=== PATIENT | female | born 1955 | race Caucasian/White ===

== ENCOUNTER 2016-07-16 06:47 | Day surgery (SDC) | payer BC ==
[2016-07-15 14:02] VITALS: BMI 18.6
[2016-07-16 07:29] VITALS: PULSE 77; RESP 16; TEMP 98.2
[2016-07-16] MEDS ORDERED: LIDOCAINE 2% INJ 20 MG/ML SQ ONE (08:18)
--- NOTE | 2016-07-16 08:48 | IR ---
PICC LINE PLACEMENT: HISTORY: Infection requiring long-term antibiotic therapy PROCEDURE: Ultrasound and fluoroscopic guidance of PICC line placement. COMPLICATIONS: None ANESTHESIA: 1. 1% Lidocaine locally. FINDINGS/TECHNIQUE: The procedure was explained to the patient. The risks, complications, benefits and alternatives were discussed and any questions were answered. Informed consent was obtained. The patient was placed supine on the fluoroscopic table and prepped and draped in the usual sterile fash ion. Utilizing a 21 gauge needle and sonographic and fluoroscopic guidance, access in the right bas ilic vein was achieved and there is placement of a 0.018 guidewire. The vein is patent. A 4-F sheat h was placed over the guidewire. The guidewire and dilator were removed and a 4-F. PICC line was astrid luz through the sheath with the tip at the level of the SVC. The sheath was removed, the catheter wa s flushed and sutured into position. The patient was stable throughout the procedure and remained st able upon discharge from the Department of Radiology. The vein puncture was patent under ultrasound. A yanez scale image was obtained to document patency of the vein punctured. All elements of the maximal barrier technique were utilized. FLUOROSCOPY TIME: 0.1 minute IMPRESSION: Successful PICC line placement under ultrasound and fluoroscopic guidance.
[2016-07-16 09:07] VITALS: BP 144/70
== END 2016-07-16 08:59 | disposition home or self-care (01) ==
LOC: CATHCVL 06:47
PROVIDERS: ATTEND Radiology Diagnostic Radiology
DX: G89.4 Chronic pain syndrome (principal); E88.40 Mitochondrial metabolism disorder, unspecified
CPT/HCPCS: 36569; 76937; 77001; C1751; C1769; J2001

== ENCOUNTER 2019-06-14 19:23 | Inpatient (IN) | payer BC ==
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
[2019-06-14 21:07] LABS: Basophils % (A) 0 %; Eosinophils # (A) 0.1 k/uL (0-0.7); Eosinophils % (A) 1 %; HCT 35.7 % (34.0-46.0); HGB 11.6 gm/dL (11.4-16.0); Lymphocytes # (A) 0.8 k/uL (1.0-4.8); Lymphocytes % (A) 6 %; MCH 31.4 pg (25.0-35.0); MCHC 32.4 g/dL (31.0-37.0); Monocytes # (A) 0.3 k/uL (0-1.0); Monocytes % (A) 2 %; Neutrophils # (A) 11.8 k/uL (1.3-7.7); Neutrophils % (A) 90 %; Platelet Count 257 k/uL (150-450); RBC 3.68 m/uL (3.80-5.40); RDW 14.1 % (11.5-15.5); WBC 13.2 k/uL (3.8-10.6)
[2019-06-14 21:09] LABS: African American GFR (CKD) >90 (>60 ml/min/1.73 sqM); Anion Gap 11 mmol/L; Blood Urea Nitrogen 10 mg/dL (7-17); Calcium 8.9 mg/dL (8.4-10.2); Carbon Dioxide 20 mmol/L (22-30); Chloride 107 mmol/L (98-107); Glucose 120 mg/dL (74-99); Non-African American GFR(CKD) >90 (>60 ml/min/1.73 sqM); Potassium 3.8 mmol/L (3.5-5.1); Sodium 138 mmol/L (137-145)
--- NOTE | 2019-06-14 21:50 | XR ---
EXAMINATION TYPE: XR chest 2V DATE OF EXAM: 06/14/2019 COMPARISON: NONE HISTORY: Cough TECHNIQUE: Frontal and lateral views of the chest are obtained. FINDINGS: Scattered senescent parenchymal changes noted. Hyperinflation compatible with COPD. Reticulonodular right perihilar and right lower lobe infiltrate as well as left lower lobe infiltrate noted. Correlate for COVID 19 pneumonia. Heart size is stable. Mediastinal structures are stable and grossly unremarkable. No evidence for hilar prominence. Degenerative changes dorsal spine. IMPRESSION: 1. Reticulonodular right perihilar and right lower lobe infiltrate as well as left lower lobe infiltr ate noted. Correlate for COVID 19 pneumonia.
[2019-06-14] MEDS ORDERED: AZITHROMYCIN 500 MG in SODIUM CHLORIDE 0.9% 250 ML IVPB STA (22:07)
[2019-06-14] MEDS ORDERED: NALOXONE 0.4 MG/ML 1 ML VIAL IV PRN (22:08)
[2019-06-15] MEDS ORDERED: HYDROmorphone 0.5 MG/0.5 ML SYRINGE IVP STA (01:48)
[2019-06-15] MEDS ORDERED: HYDROcodone/APAP 5-325MG 1 EACH TAB PO PRN ×2 (01:49→18:10)
[2019-06-15] MEDS ORDERED: LORazepam 2 MG/ML INJ IV STA (01:50)
[2019-06-15] MEDS ORDERED: cloNIDine HCL 0.2 MG TAB PO STA (04:55)
[2019-06-15] MEDS ORDERED: MORPHINE SULFATE 2 MG/ML SYRINGE IV PRN (11:52)
[2019-06-15] MEDS ORDERED: BUTA/APAP/CAF/COD 50-325-40-30 CAP PO PRN ×2 (11:52→18:12)
[2019-06-15] MEDS ORDERED: HALOPERIDOL 1 MG TAB PO PRN ×2 (11:52→18:10)
[2019-06-15] MEDS ORDERED: ALBUTEROL NEBULIZED 2.5 MG/3 ML INHALATION PRN (11:52)
[2019-06-15] MEDS ORDERED: ACETAMINOPHEN TAB 325 MG TAB PO PRN ×2 (11:52→18:13)
[2019-06-15] MEDS ORDERED: ONDANSETRON 4 MG/2 ML VIAL IVP PRN ×2 (11:52→18:08)
[2019-06-15] MEDS ORDERED: guaiFENesin 600 MG TABLET.ER PO PRN ×2 (11:52→18:12)
[2019-06-15] MEDS ORDERED: DIPHENOX-ATROP 2.5-0.025 MG 1 EACH TAB PO PRN (11:52)
[2019-06-15] MEDS ORDERED: LORazepam 2 MG/ML INJ IV PRN ×2 (11:52→18:10)
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
[2019-06-15] MEDS ORDERED: SUCRALFATE 1 GM TAB PO SCH (12:30)
[2019-06-15 15:22] VITALS: BP 165/92; PULSE 109; RESP 22; TEMP 99.5
[2019-06-15] MEDS ORDERED: DIAZEPAM 5 MG TAB PO SCH (16:00)
[2019-06-15] MEDS ORDERED: MORPHINE SULFATE 2 MG/ML SYRINGE IVP PRN (18:09)
[2019-06-15] MEDS ORDERED: LACTULOSE 20 GM/30 ML CUP PO SCH (21:00)
[2019-06-15] MEDS ORDERED: DULoxetine HCL 20 MG CAPSULE.DR PO SCH (21:00)
== END 2019-06-15 17:08 | disposition hospice, inpatient (51) | DRG 91 ==
LOC: EC 19:23 → 4SSUR 22:10
PROVIDERS: ADMIT Hospitalist; ATTEND Hospitalist
DX: G71.00 Muscular dystrophy, unspecified (principal); J18.9 Pneumonia, unspecified organism; F17.210 Nicotine dependence, cigarettes, uncomplicated; F32.9 Major depressive disorder, single episode, unspecified; F41.9 Anxiety disorder, unspecified; G47.30 Sleep apnea, unspecified; G89.4 Chronic pain syndrome; H91.90 Unspecified hearing loss, unspecified ear; I10 Essential (primary) hypertension; K21.9 Gastro-esophageal reflux disease without esophagitis; K22.70 Barrett's esophagus without dysplasia; Z51.5 Encounter for palliative care; Z79.899 Other long term (current) drug therapy; Z90.710 Acquired absence of both cervix and uterus; Z20.828 Contact with and (suspected) exposure to other viral communicable diseases; Z95.5 Presence of coronary angioplasty implant and graft; Z88.8 Allergy status to other drugs, medicaments and biological substances; Z91.040 Latex allergy status
CPT/HCPCS: 36415; 71046; 80048; 85025; 87502; 87635; 96365; 99285

== ENCOUNTER 2019-06-15 17:10 | Inpatient (IN) | payer OTHER ==
[2019-06-15] MEDS ORDERED: HYDROcodone/APAP 5-325MG 1 EACH TAB PO PRN (20:02)
[2019-06-15] MEDS ORDERED: HALOPERIDOL 1 MG TAB PO PRN (20:05)
[2019-06-15] MEDS: LORazepam 2 MG/ML INJ IV PRN (20:15)
[2019-06-15] MEDS: MORPHINE SULFATE 2 MG/ML SYRINGE IVP PRN (22:28)
[2019-06-15] MEDS ORDERED: ONDANSETRON 4 MG/2 ML VIAL IVP PRN (23:56)
[2019-06-16] MEDS ORDERED: METOCLOPRAMIDE 5 MG/ML 2 ML VIAL IVP PRN (00:06)
[2019-06-16] MEDS: MORPHINE SULFATE 2 MG/ML SYRINGE IVP PRN ×3 (01:00→19:51)
[2019-06-16] MEDS: LORazepam 2 MG/ML INJ IV PRN ×3 (04:32→22:05)
[2019-06-16] MEDS: METOPROLOL TARTRATE 25 MG TAB PO SCH (20:47)
[2019-06-16] MEDS ORDERED: LACTULOSE 20 GM/30 ML CUP PO SCH (21:00)
[2019-06-16] MEDS: SUCRALFATE 1 GM TAB PO SCH (21:46)
[2019-06-16] MEDS ORDERED: METHADONE 10 MG TAB PO SCH (22:00)
[2019-06-16] MEDS ORDERED: DIAZEPAM 5 MG TAB PO SCH (22:00)
[2019-06-16] MEDS ORDERED: HYDROcodone/APAP 10-325MG 1 EACH TAB PO SCH (22:00)
[2019-06-16] MEDS ORDERED: LACTULOSE 20 GM/30 ML CUP PO PRN (22:01)
[2019-06-16] MEDS: DULoxetine HCL 20 MG CAPSULE.DR PO SCH (22:05)
[2019-06-17] MEDS: ZOLPIDEM 5 MG TAB PO PRN ×2 (00:13→22:01)
[2019-06-17] MEDS: HYDROmorphone 0.5 MG/0.5 ML SYRINGE IVP PRN ×5 (00:13→23:11)
[2019-06-17] MEDS ORDERED: BUTA/APAP/CAF/COD 50-325-40-30 CAP PO PRN ×2 (02:35→02:38)
[2019-06-17] MEDS ORDERED: BUTA/APAP/CAF/COD 50-325-40-30 CAP PO STA (03:32)
[2019-06-17] MEDS: LORazepam 2 MG/ML INJ IV PRN ×3 (04:10→19:45)
[2019-06-17] MEDS: METHADONE 10 MG TAB PO SCH ×3 (06:26→22:01)
[2019-06-17] MEDS: ALBUTEROL NEBULIZED 2.5 MG/3 ML INHALATION PRN ×2 (07:52→15:36)
[2019-06-17] MEDS: SUCRALFATE 1 GM TAB PO SCH ×3 (08:10→15:59)
[2019-06-17] MEDS: METOPROLOL TARTRATE 25 MG TAB PO SCH ×2 (08:10→19:46)
[2019-06-17] MEDS: DULoxetine HCL 20 MG CAPSULE.DR PO SCH ×2 (08:10→19:46)
[2019-06-17] MEDS: LISINOPRIL 5 MG TAB PO SCH (08:11)
[2019-06-17] MEDS: BUTA/APAP/CAF/COD 50-325-40-30 CAP PO PRN ×2 (15:59→23:12)
[2019-06-17] MEDS: DIAZEPAM 5 MG TAB PO PRN (22:01)
--- NOTE | 2019-06-17 22:20 | P.PN ---
Subjective Progress Note Date: 06/17/19 Principal diagnosis: Inability to care for herself and social issues Ms. Sweeney is a 63-year-old female who is currently in hospice brought into the hospital for social issues. Patient has history of muscular dystrophy and is in hospice at home. Her takes care of her at home, unfortunately he committed suicide couple of days back, so the patient is brought to the hospital. Patient had some cough and the chest x-ray showed interstitial changes, her Covid 19 testing was negative. Patient appears to be depressed and wants to remain on hospice and comfort care and she does not want anything to be done. As per the nursing staff report [facility] has been consulted and they have been in contact with the nursing staff over the phone. But the patient was not physically evaluated by them due to coronavirus pandemic. On 06/17/2019 -patient is comfortably lying in bed and talking over the phone with her friend. She denies having any complaints. She is sad as she lost her whom she has been with for the past 37 years. She denies having any contacts with her kids. She mentions about having to take care of her financial situation. She mentions that her has insurance and she would be eligible for it. Other than the financial issues, social issues patient does not have any active medical complaints. She denies having any fevers chills or rigors. No chest pain no palpitations. No cough or difficulty breathing. No abdominal pain nausea vomiting or diarrhea. She has muscular dystrophy and generalized weakness and it is at baseline. Active Medications Acetam/Butalbital/Caffeine/Codeine (Fioricet W/Codeine) 1 each PO Q4HR PRN PRN Reason: Migraine Headache Last Admin: 06/17/19 15:59 Dose: 1 each Documented by: Hydrocodone Bitart/Acetaminophen ([place] 10) 1 each PO TID PRN PRN Reason: Breakthrough Pain Albuterol Sulfate (Ventolin Nebulized) 2.5 mg INHALATION RT-QID PRN PRN Reason: Shortness Of Breath Last Admin: 06/17/19 15:36 Dose: 2.5 mg Documented by: Diazepam (Valium) 10 mg PO TID PRN PRN Reason: Anxiety Last Admin: 06/17/19 22:01 Dose: 10 mg Documented by: Duloxetine HCl (Cymbalta) 20 mg PO BID [facility] Last Admin: 04/12/20 19:46 Dose: 20 mg Documented by: Haloperidol (Haldol) 1 mg PO TID PRN PRN Reason: Anxiety Last Admin: 06/16/19 02:01 Dose: 1 mg Documented by: Hydromorphone HCl (Dilaudid) 0 mg IVP Q2HR PRN PRN Reason: Pain Last Admin: 06/17/19 20:43 Dose: 1 mg Documented by: Lactulose (Cephulac) 20 gm PO BID PRN PRN Reason: Constipation Lisinopril (Zestril) 5 mg PO DAILY [facility] Last Admin: 06/17/19 08:11 Dose: 5 mg Documented by: Lorazepam (Ativan) 1 mg IV Q6HR PRN PRN Reason: Anxiety Last Admin: 06/17/19 19:45 Dose: 1 mg Documented by: Methadone HCl (Dolophine) 50 mg PO Q8H [facility] Last Admin: 06/17/19 22:01 Dose: 50 mg Documented by: Metoclopramide HCl (Reglan) 5 mg IVP Q6HR PRN PRN Reason: Nausea And Vomiting Last Admin: 06/16/19 00:10 Dose: 5 mg Documented by: Metoprolol Tartrate (Lopressor) 25 mg PO BID [facility] Last Admin: 06/17/19 19:46 Dose: 25 mg Documented by: Sucralfate (Carafate) 1 gm PO AC-TID [facility] Last Admin: 06/17/19 15:59 Dose: 1 gm Documented by: Zolpidem Tartrate (Ambien) 5 mg PO HS PRN PRN Reason: Insomnia Last Admin: 06/17/19 22:01 Dose: 5 mg Documented by: Objective - Vital Signs Vital signs: Vital Signs Temp 98.1 F 06/17/19 07:00 Pulse 74 06/17/19 08:01 Resp 16 06/17/19 07:00 BP 174/91 06/17/19 07:00 Pulse Ox 95 06/17/19 07:00 Intake & Output 06/16/19 06/17/19 06/17/19 18:59 06:59 18:59 Other: Voiding Method Bedside Commode Bedside Commode Bedside Commode # Voids 2 1 # Bowel Movements 1 - Exam PHYSICAL EXAMINATION: GENERAL: She is AAOX 3 and no acute distress HEENT: ELISE, no pallor or icterus. CARDIOVASCULAR: S1 and S2 present. No murmurs, rubs, or gallops. PULMONARY: Chest is clear to auscultation, no wheezing or crackles. ABDOMEN: Soft, nontender, nondistended, normoactive bowel sounds. MUSCULOSKELETAL: No joint swelling or deformity. EXTREMITIES: No cyanosis, clubbing, or pedal edema. NEUROLOGICAL: Gross neurological examination did not reveal any new focal deficits. Patient does have chronic muscle weakness and muscle atrophy in both legs from her muscular dystrophy Assessment and Plan Assessment: ASSESSMENT Muscular dystrophy of unknown etiology Possibility of atypical pneumonia GERD Hypertension Sleep apnea Major depression PLAN: Patient is alert awake oriented x3. Patient wishes to be DNR. Discussed with her about hospice care. She is okay being under hospice care but she does not want them to take care of her financial issues. So social media intern on board to discuss the legalities regarding her condition. For now medically she is not having any active issues. We will continue the current medication regimen. Further recommendations to follow depending on the progress of the patient.
--- NOTE | 2019-06-17 22:21 | P.PN ---
Subjective Progress Note Date: 06/16/19 Principal diagnosis: Inability to care for herself and social issues Ms. Sweeney is a 63-year-old female who is currently in hospice brought into the hospital for social issues. Patient has history of muscular dystrophy and is in hospice at home. Her takes care of her at home, unfortunately he committed suicide couple of days back, so the patient is brought to the hospital. Patient had some cough and the chest x-ray showed interstitial changes, her Covid 19 testing was negative. Patient appears to be depressed and wants to remain on hospice and comfort care and she does not want anything to be done. As per the nursing staff report [facility] has been consulted and they have been in contact with the nursing staff over the phone. But the patient was not physically evaluated by them due to coronavirus pandemic. Patient has been lying in her bed, as per the nursing staff report she received Ativan few minutes back, she appears to be drowsy. Complete review of systems could not be done as the patient is sleeping and does not want to be bothered. Patient's vital signs have been stable with temperature of 97.7 heart rate of 77, respiratory rate 17 blood pressure of 179 x 88 saturating at 99% on room air. Patient's medications and labs have been reviewed. No new labs for the past couple of days. Active Medications Generic Name Dose Route Start Last Admin Trade Name Freq PRN Reason Stop Dose Admin Hydrocodone Bitart/Acetaminophen 1 each 06/15/19 20:02 06/16/19 00:11 [place] 5-325 PO 1 each Q4HR PRN Administration Breakthrough Pain Hydrocodone Bitart/Acetaminophen 1 each 06/16/19 22:00 [place] 10 PO TID KHALIDA Albuterol Sulfate 2.5 mg 06/16/19 20:17 Ventolin Nebulized INHALATION RT-QID PRN Shortness Of Breath Diazepam 10 mg 06/16/19 22:00 06/16/19 20:46 Valium PO 10 mg TID KHALIDA Administration Duloxetine HCl 20 mg 06/16/19 21:00 Cymbalta PO BID KHALIDA Haloperidol 1 mg 06/15/19 20:05 06/16/19 02:01 Haldol PO 1 mg TID PRN Administration Anxiety Lactulose 20 gm 06/16/19 21:00 06/16/19 20:46 Cephulac PO 20 gm BID KHALIDA Administration Lisinopril 5 mg 06/17/19 09:00 Zestril PO DAILY KHALIDA Lorazepam 1 mg 06/15/19 20:00 06/16/19 13:45 Ativan IV 1 mg Q6HR PRN Administration Anxiety Metoclopramide HCl 5 mg 06/16/19 00:06 06/16/19 00:10 Reglan IVP 5 mg Q6HR PRN Administration Nausea And Vomiting Metoprolol Tartrate 25 mg 06/16/19 21:00 06/16/19 20:47 Lopressor PO 25 mg BID KHALIDA Administration Morphine Sulfate 2 mg 06/15/19 20:01 06/16/19 19:51 Morphine Sulfate (Inj) IVP 2 mg Q1H PRN Administration Severe Breakthrough Pain Sucralfate 1 gm 06/16/19 22:00 Carafate PO AC-TID KHALIDA Zolpidem Tartrate 5 mg 06/16/19 20:17 Ambien PO HS PRN Insomnia Objective - Vital Signs Vital signs: Vital Signs Temp 97.7 F 06/16/19 07:39 Pulse 77 06/16/19 07:39 Resp 17 06/16/19 07:39 BP 179/88 06/16/19 07:39 Pulse Ox 99 06/16/19 07:39 Intake & Output 06/15/19 06/16/19 06/16/19 18:59 06:59 18:59 Intake Total 0 Balance 0 Weight 56.36 kg 56.36 kg Intake: Oral 0 Other: Voiding Method Bedside Commode Bedside Commode # Voids 1 # Bowel Movements 1 - Exam PHYSICAL EXAMINATION: GENERAL: Pt is drowsy and sleeping ,states that she does not want to be bothered HEENT: ELISE, no pallor or icterus. CARDIOVASCULAR: S1 and S2 present. No murmurs, rubs, or gallops. PULMONARY: Chest is clear to auscultation, no wheezing or crackles. ABDOMEN: Soft, nontender, nondistended, normoactive bowel sounds. MUSCULOSKELETAL: No joint swelling or deformity. EXTREMITIES: No cyanosis, clubbing, or pedal edema. NEUROLOGICAL: Gross neurological examination did not reveal any new focal deficits. Patient does have chronic muscle weakness and muscle atrophy in both legs from her muscular dystrophy Assessment and Plan Assessment: ASSESSMENT Muscular dystrophy of unknown etiology Possibility of atypical pneumonia GERD Hypertension Sleep apnea Major depression PLAN: The patient was started on comfort measures, hospice has been consulted. As per nursing staff report hospice has been in contact with them via phone. For now continue with comfort measures. We are also in the process of finding a legal guardian , as she does not have immediate family. For now we will continue comfort measures.
[2019-06-18] MEDS: HYDROmorphone 0.5 MG/0.5 ML SYRINGE IVP PRN ×5 (02:07→22:42)
[2019-06-18] MEDS: HYDROcodone/APAP 10-325MG 1 EACH TAB PO PRN ×2 (02:07→22:42)
[2019-06-18] MEDS: LORazepam 2 MG/ML INJ IV PRN ×2 (02:08→15:40)
[2019-06-18] MEDS: METHADONE 10 MG TAB PO SCH ×3 (05:37→20:14)
[2019-06-18] MEDS: LISINOPRIL 5 MG TAB PO SCH (07:31)
[2019-06-18] MEDS: SUCRALFATE 1 GM TAB PO SCH ×3 (07:32→17:38)
[2019-06-18] MEDS: METOPROLOL TARTRATE 25 MG TAB PO SCH ×2 (07:32→20:14)
[2019-06-18] MEDS: DULoxetine HCL 20 MG CAPSULE.DR PO SCH ×2 (07:32→20:14)
[2019-06-18] MEDS: BUTA/APAP/CAF/COD 50-325-40-30 CAP PO PRN (11:00)
[2019-06-18] MEDS: ZOLPIDEM 5 MG TAB PO PRN (22:42)
--- NOTE | 2019-06-18 23:53 | P.PN ---
Subjective Progress Note Date: 06/18/19 Principal diagnosis: Inability to care for herself and social issues Ms. Sweeney is a 63-year-old female who is currently in hospice brought into the hospital for social issues. Patient has history of muscular dystrophy and is in hospice at home. Her takes care of her at home, unfortunately he committed suicide couple of days back, so the patient is brought to the hospital. Patient had some cough and the chest x-ray showed interstitial changes, her Covid 19 testing was negative. Patient appears to be depressed and wants to remain on hospice and comfort care and she does not want anything to be done. As per the nursing staff report [facility] has been consulted and they have been in contact with the nursing staff over the phone. But the patient was not physically evaluated by them due to coronavirus pandemic. On 06/17/2019 -patient is comfortably lying in bed and talking over the phone with her friend. She denies having any complaints. She is sad as she lost her whom she has been with for the past 37 years. She denies having any contacts with her kids. She mentions about having to take care of her financial situation. She mentions that her has insurance and she would be eligible for it. Other than the financial issues, social issues patient does not have any active medical complaints. She denies having any fevers chills or rigors. No chest pain no palpitations. No cough or difficulty breathing. No abdominal pain nausea vomiting or diarrhea. She has muscular dystrophy and generalized weakness and it is at baseline. On 06/17/18 - Patient is comfortably lying in bed talking over the phone with her friend again today. She states that she is sad due to recent of her . She states that she has terminal illness which is her muscular dystrophy and states that she requires more pain medications. Patient looks very comfortable does not look like she is any kind of discomfort. She denies having any chest pain or palpitations. No cough or difficulty breathing. No abdominal pain nausea vomiting or diarrhea. Not dysuria or hematuria. Patient's vitals have been stable. Active Medications Acetam/Butalbital/Caffeine/Codeine (Fioricet W/Codeine) 2 each PO Q4HR PRN PRN Reason: Migraine Headache Last Admin: 06/18/19 11:00 Dose: 2 each Documented by: Hydrocodone Bitart/Acetaminophen ([place] 10) 1 each PO TID PRN PRN Reason: Breakthrough Pain Last Admin: 06/18/19 02:07 Dose: 1 each Documented by: Albuterol Sulfate (Ventolin Nebulized) 2.5 mg INHALATION RT-QID PRN PRN Reason: Shortness Of Breath Last Admin: 06/17/19 15:36 Dose: 2.5 mg Documented by: Diazepam (Valium) 10 mg PO TID PRN PRN Reason: Anxiety Last Admin: 06/17/19 22:01 Dose: 10 mg Documented by: Duloxetine HCl (Cymbalta) 20 mg PO BID [facility] Last Admin: 06/18/19 07:32 Dose: 20 mg Documented by: Haloperidol (Haldol) 1 mg PO TID PRN PRN Reason: Anxiety Last Admin: 06/16/19 02:01 Dose: 1 mg Documented by: Hydromorphone HCl (Dilaudid) 0 mg IVP Q2HR PRN PRN Reason: Pain Last Admin: 06/18/19 07:36 Dose: 1 mg Documented by: Lactulose (Cephulac) 20 gm PO BID PRN PRN Reason: Constipation Lisinopril (Zestril) 5 mg PO DAILY [facility] Last Admin: 06/18/19 07:31 Dose: 5 mg Documented by: Lorazepam (Ativan) 1 mg IV Q6HR PRN PRN Reason: Anxiety Last Admin: 06/18/19 02:08 Dose: 1 mg Documented by: Methadone HCl (Dolophine) 50 mg PO Q8H [facility] Last Admin: 06/18/19 05:37 Dose: 50 mg Documented by: Metoclopramide HCl (Reglan) 5 mg IVP Q6HR PRN PRN Reason: Nausea And Vomiting Last Admin: 06/16/19 00:10 Dose: 5 mg Documented by: Metoprolol Tartrate (Lopressor) 25 mg PO BID [facility] Last Admin: 06/18/19 07:32 Dose: 25 mg Documented by: Sucralfate (Carafate) 1 gm PO AC-TID [facility] Last Admin: 06/18/19 07:32 Dose: 1 gm Documented by: Zolpidem Tartrate (Ambien) 5 mg PO HS PRN PRN Reason: Insomnia Last Admin: 06/17/19 22:01 Dose: 5 mg Documented by: Objective - Vital Signs Vital signs: Vital Signs Temp 97.0 F L 06/18/19 07:00 Pulse 114 H 06/18/19 07:00 Resp 18 06/18/19 07:20 BP 145/99 06/18/19 07:00 Pulse Ox 97 06/18/19 07:00 Intake & Output 06/17/19 06/18/19 06/18/19 18:59 06:59 18:59 Other: Voiding Method Bedside Commode Bedside Commode # Voids 2 1 1 - Exam PHYSICAL EXAMINATION: GENERAL: She is AAOX 3 and no acute distress HEENT: ELISE, no pallor or icterus. CARDIOVASCULAR: S1 and S2 present. No murmurs, rubs, or gallops. PULMONARY: Chest is clear to auscultation, no wheezing or crackles. ABDOMEN: Soft, nontender, nondistended, normoactive bowel sounds. MUSCULOSKELETAL: No joint swelling or deformity. EXTREMITIES: No cyanosis, clubbing, or pedal edema. NEUROLOGICAL: Gross neurological examination did not reveal any new focal deficits. Patient does have chronic muscle weakness and muscle atrophy in both legs from her muscular dystrophy Assessment and Plan Assessment: ASSESSMENT Muscular dystrophy of unknown etiology Possibility of atypical pneumonia GERD Hypertension Sleep apnea Major depression PLAN: Patient is alert awake oriented x3. Patient wishes to be DNR. Discussed with her about hospice care. She is okay being under hospice care but she does not want them to take care of her financial issues. So addiction social worker on board to discuss the legalities regarding her condition. For now medically she is not having any active issues. We will continue the current medication regimen. Further recommendations to follow depending on the progress of the patient. Court meeting for legal guardianship tomorrow morning as per addiction social worker's report.
[2019-06-19] MEDS: HYDROmorphone 0.5 MG/0.5 ML SYRINGE IVP PRN ×6 (00:54→19:52)
[2019-06-19] MEDS: DIAZEPAM 5 MG TAB PO PRN ×3 (00:54→19:52)
[2019-06-19] MEDS: METHADONE 10 MG TAB PO SCH ×3 (05:40→21:20)
[2019-06-19] MEDS: DULoxetine HCL 20 MG CAPSULE.DR PO SCH ×2 (07:57→21:20)
[2019-06-19] MEDS: METOPROLOL TARTRATE 25 MG TAB PO SCH ×2 (07:57→21:20)
[2019-06-19] MEDS: LISINOPRIL 5 MG TAB PO SCH (07:57)
[2019-06-19] MEDS: SUCRALFATE 1 GM TAB PO SCH ×3 (07:58→15:25)
[2019-06-19] MEDS: BUTA/APAP/CAF/COD 50-325-40-30 CAP PO PRN (13:39)
--- NOTE | 2019-06-19 19:16 | P.PN ---
Subjective Ms. Sweeney is a 63-year-old female who is currently in hospice brought into the hospital for social issues. Patient has history of muscular dystrophy and is in hospice at home. Her takes care of her at home, unfortunately he committed suicide couple of days back, so the patient is brought to the hospital. Patient had some cough and the chest x-ray showed interstitial changes, her Covid 19 testing was negative. Patient appears to be depressed and wants to remain on hospice and comfort care and she does not want anything to be done. As per the nursing staff report [facility] has been consulted and they have been in contact with the nursing staff over the phone. But the patient was not physically evaluated by them due to coronavirus pandemic. On 06/17/2019 -patient is comfortably lying in bed and talking over the phone with her friend. She denies having any complaints. She is sad as she lost her whom she has been with for the past 37 years. She denies having any contacts with her kids. She mentions about having to take care of her financial situation. She mentions that her has insurance and she would be eligible for it. Other than the financial issues, social issues patient does not have any active medical complaints. She denies having any fevers chills or rigors. No chest pain no palpitations. No cough or difficulty breathing. No abdominal pain nausea vomiting or diarrhea. She has muscular dystrophy and generalized weakness and it is at baseline. On 06/18/19 - Patient is comfortably lying in bed talking over the phone with her friend again today. She states that she is sad due to recent of her . She states that she has terminal illness which is her muscular dystrophy and states that she requires more pain medications. Patient looks very comfortable does not look like she is any kind of discomfort. She denies having any chest pain or palpitations. No cough or difficulty breathing. No abdominal pain nausea vomiting or diarrhea. Not dysuria or hematuria. Patient's vitals have been stable. 06/19/2019 Patient awake and alert, she was resting comfortable in bed however she was asking for fiorocet tablets for her headache. Patient however was pleasant not in distress and not depressed, she was excited to be discharged home with hospice care. I called and discussed the case with her PCP Dr. Medina, who confirmed to me that she's hospice care secondary to her muscular dystrophy Patient is cleared for discharge pending placement MAPS was checked on and on 06/05/2019 she was on morphine, [place], methadone Objective - Vital Signs Vital signs: Vital Signs Temp 98.3 F 06/19/19 14:35 Pulse 73 06/19/19 14:35 Resp 16 06/19/19 14:35 BP 151/94 06/19/19 14:35 Pulse Ox 91 L 06/19/19 14:35 Intake & Output 06/19/19 06/19/19 06/20/19 06:59 18:59 06:59 Intake Total 200 Balance 200 Intake: Oral 200 Other: # Voids 1 2 # Bowel Movements 1 - Exam GENERAL: The patient is alert and oriented x3, not in any acute distress. Generally weak HEENT: Pupils are round and equally reacting to light. EOMI. No scleral icterus. No conjunctival pallor. Normocephalic, atraumatic. No pharyngeal erythema. No thyromegaly. CARDIOVASCULAR: S1 and S2 present. No murmurs, rubs, or gallops. PULMONARY: Chest is clear to auscultation, no wheezing or crackles. ABDOMEN: Soft, nontender, nondistended, normoactive bowel sounds. No palpable organomegaly. MUSCULOSKELETAL: No joint swelling or deformity. EXTREMITIES: No cyanosis, clubbing, or pedal edema. NEUROLOGICAL: Gross neurological examination did not reveal any focal deficits. Patient was lying in bed and didn't try to walk SKIN: No rashes. no petechiae. Assessment and Plan Assessment: Muscular dystrophy, on hospice care currently GERD Hypertension Sleep apnea Major depression Plan: This is a pleasant 63 years old female on advanced I's and the stage muscular dystrophy on hospice care as confirmed by her PCP Dr. medina, patient has continued to be hospice and to be discharged to follow her therapy as an outpatient. Patient is medically clear pending placement continue with morphine, [place], methadone, Fioricet, Valium and Ambien for making the patient comfortable Prognosis is extremely poor
[2019-06-20] MEDS: HYDROcodone/APAP 10-325MG 1 EACH TAB PO PRN ×2 (00:13→11:14)
[2019-06-20] MEDS: ZOLPIDEM 5 MG TAB PO PRN (00:13)
[2019-06-20] MEDS: HYDROmorphone 0.5 MG/0.5 ML SYRINGE IVP PRN ×4 (00:13→15:39)
[2019-06-20] MEDS: METHADONE 10 MG TAB PO SCH ×2 (06:37→13:13)
[2019-06-20] MEDS: BUTA/APAP/CAF/COD 50-325-40-30 CAP PO PRN ×2 (07:39→14:10)
[2019-06-20] MEDS: LISINOPRIL 5 MG TAB PO SCH (07:45)
[2019-06-20] MEDS: METOPROLOL TARTRATE 25 MG TAB PO SCH (07:45)
[2019-06-20] MEDS: DULoxetine HCL 20 MG CAPSULE.DR PO SCH (07:45)
[2019-06-20] MEDS: SUCRALFATE 1 GM TAB PO SCH ×2 (07:45→11:12)
--- NOTE | 2019-06-20 14:20 | P.DS ---
Providers Date of admission: 06/15/19 17:11 Attending physician: Aramis Nevarez Primary care physician: Stated None Hospital Course: Diagnoses: Muscular dystrophy, on hospice care currently GERD Hypertension Sleep apnea Major depression Hospital course: Ms. Sweeney is a 63-year-old female who is currently in hospice brought into the hospital for social issues. Patient has history of muscular dystrophy and is in hospice at home. Her takes care of her at home, unfortunately he committed suicide couple of days prior to coming to the hospital, so the patient is brought to the hospital. Patient had some cough and the chest x-ray showed interstitial changes, her Covid 19 testing was negative. Patient appears to be depressed and wants to remain on hospice and comfort care and she does not want anything to be done. [facility] has been consulted and they have been in contact with the patient. Patient awake and alert, she was resting comfortable in bed however she was asking for pain medication. Patient however was pleasant not in distress and n ot depressed, she was excited to be discharged home with hospice care. I called and discussed the case with her PCP Dr. Medina, who confirmed to me that she's hospice care secondary to her muscular dystrophy Patient was cleared for discharge pending placement from yesterday MAPS was checked on and on 06/05/2019 she was on morphine, [place], methadone Problems and management plan were discussed with the patient and he verbalized understanding and acceptance Patient was found stable and can be discharged home however he needs follow-up as an outpatient. Patient was instructed to follow up with PCP within one week and patient agrees -Gen: patient is a AAOx3, no distress. Generally weak CVS: S1-S2, RRR, no murmur Lungs: B/L CTA, no wheezing Abdomen: soft, no distention, no tenderness, positive bowel sounds Extremity: no leg edema or induration -Gait: Walk with a walker Time spent more than 35 minutes Plan - Discharge Summary Discharge Rx Participant: No New Discharge Prescriptions: New Methadone [Dolophine] 50 mg PO Q8H tab Metoprolol Tartrate [Lopressor] 25 mg PO BID #60 tab Continue HYDROcodone/APAP 10-325MG [[place] 10-325] 1 tab PO TID Lisinopril [Zestril] 5 mg PO DAILY Albuterol Nebulized [Ventolin Nebulized] 2.5 mg INHALATION RT-QID PRN PRN Reason: Shortness Of Breath [place]/APAP/Caf/Cod 82-150-92-30 [Fioricet w/Cod 58-819-55-30MG] 2 cap PO Q4H PRN PRN Reason: Migraine Headache Diazepam 10 mg PO TID DULoxetine HCL [Cymbalta] 20 mg PO BID guaiFENesin [Mucinex] 600 mg PO Q12H PRN PRN Reason: Congestion Lactulose 20 gm PO BID Metoclopramide [Reglan] 10 mg PO TID Sucralfate [Carafate] 1 gm PO TID Zolpidem [Ambien] 5 mg PO HS PRN PRN Reason: Insomnia Discharge Medication List HYDROcodone/APAP 10-325MG [[place] 10-325] 1 tab PO TID 02/17/17 [History] Lisinopril [Zestril] 5 mg PO DAILY 02/17/17 [History] Albuterol Nebulized [Ventolin Nebulized] 2.5 mg INHALATION RT-QID PRN 06/15/19 [History] [place]/APAP/Caf/Cod [id number] [Fioricet w/Cod 89-370-81-30MG] 2 cap PO Q4H PRN 06/15/19 [History] DULoxetine HCL [Cymbalta] 20 mg PO BID 06/15/19 [History] Diazepam 10 mg PO TID 06/15/19 [History] Lactulose 20 gm PO BID 06/15/19 [History] Metoclopramide [Reglan] 10 mg PO TID 06/15/19 [History] Sucralfate [Carafate] 1 gm PO TID 06/15/19 [History] Zolpidem [Ambien] 5 mg PO HS PRN 06/15/19 [History] guaiFENesin [Mucinex] 600 mg PO Q12H PRN 06/15/19 [History] Methadone [Dolophine] 50 mg PO Q8H tab 06/19/19 [Rx] Metoprolol Tartrate [Lopressor] 25 mg PO BID #60 tab 06/19/19 [Rx] Follow up Appointment(s)/Referral(s): Gregg Medina MD [REFERRING] - 1 Week Patient Instructions/Handouts: Viral Pneumonia (DC)
[2019-06-20 15:21] VITALS: BP 119/77; TEMP 98.5
[2019-06-20 15:49] VITALS: PULSE 75; RESP 16
== END 2019-06-20 15:54 | disposition hospice, home (50) | DRG 951 ==
LOC: 4SSUR 17:11 → EEVIPCON 17:11
PROVIDERS: ADMIT Hospitalist; ATTEND Hospitalist
DX: Z51.5 Encounter for palliative care (principal); J18.9 Pneumonia, unspecified organism; G71.00 Muscular dystrophy, unspecified; Z66 Do not resuscitate; F32.9 Major depressive disorder, single episode, unspecified; K21.9 Gastro-esophageal reflux disease without esophagitis; I10 Essential (primary) hypertension; G47.30 Sleep apnea, unspecified; G43.909 Migraine, unspecified, not intractable, without status migrainosus; K59.00 Constipation, unspecified; G47.00 Insomnia, unspecified; F41.9 Anxiety disorder, unspecified; Z79.891 Long term (current) use of opiate analgesic; Z79.899 Other long term (current) drug therapy; Z59.9 Problem related to housing and economic circumstances, unspecified
CPT/HCPCS: 93005; 94640